=== PATIENT | female | born 1975 | race Caucasian/White ===

== ENCOUNTER 2017-06-15 21:08 | Emergency (ER) | payer SELFPAY ==
[2017-06-16 01:34] VITALS: BP 122/69
--- NOTE | 2017-06-16 02:24 | ED ---
Skin Complaint - HPI Summary HPI Summary: Pt here w/ Rt buttock sore x 2 weeks. Started as a deep pimple - sore to touch and seemed to be getting better but today seemed worse. Had a brief bought if acute nausea and pallor followed by wound coming to a head and rupturing w/ purulent d/c. Denies fever, chills. Area is still sore since rupture but has some relief of pressure. She is here tonight as she had this happen a few year ago and required antibiotics to treat skin infection which lasted weeks. She did not have a cx performed as she did not have health insurance at the time. No known h/o MRSA. Believes she took bactrim with good results. No other issues of concern. - History of Current Complaint Chief Complaint: EDRashSkinAbscess Time Seen by Provider: 06/16/17 01:07 Stated Complaint: POSS INFECTION ON LOWER BACK Hx Obtained From: Patient Pain Intensity: 0 Pain Scale Used: 0-10 Numeric - Allergy/Home Medications Allergies/Adverse Reactions: Allergies Allergy/AdvReac Type Severity Reaction Status Date / Time bleach Allergy Hives Uncoded 06/15/17 21:13 PMH/Surg Hx/FS Hx/Imm Hx Previously Healthy: Yes Endocrine/Hematology History: Denies: Autoimmune Disease - Immunization History Immunizations Up to Date: Yes Infectious Disease History: No Infectious Disease History: Denies: Hx of Known/Suspected MRSA, Traveled Outside the in Last 30 Days - Family History Known Family History: Positive: Unknown - Social History Occupation: Unemployed Lives: With Family - partner Alcohol Use: Occasionally - once a month or so Hx Substance Use: Yes Substance Use Type: Reports: Marijuana - occasionally Hx Tobacco Use: No Smoking Status (MU): Never Smoked Tobacco Review of Systems Constitutional: Negative Negative: Fever, Chills Negative: Chest Pain Negative: Shortness Of Breath Gastrointestinal: Other - see HPI Positive: no symptoms reported Musculoskeletal: Negative Skin: Other - see HPI Neurological: Negative Negative: Weakness, Paresthesia, Numbness Psychological: Normal All Other Systems Reviewed And Are Negative: Yes Physical Exam Triage Information Reviewed: Yes Vital Signs On Initial Exam: Initial Vitals Temp Pulse Resp BP Pulse Ox 98.0 F 103 16 118/76 97 06/15/17 21:16 06/15/17 21:16 06/15/17 21:16 06/15/17 21:16 06/15/17 21:16 Vital Signs Reviewed: Yes Appearance: Positive: Well-Appearing, No Pain Distress, Well-Nourished Skin: Positive: Warm, Dry - scabbed area over Rt buttock w/ focal erythema -no fever to touch - no edema, no induration, no fluctuance, no drainage - mild TTP - tissue soft Head/Face: Positive: Normal Head/Face Inspection Eyes: Positive: EOMI ENT: Positive: Hearing grossly normal Respiratory/Lung Sounds: Positive: Breath Sounds Present Cardiovascular: Positive: Pulses are Symmetrical in both Upper and Lower Extremities Musculoskeletal: Positive: Normal, Strength/ROM Intact Neurological: Positive: Normal, Sensory/Motor Intact, Alert, Oriented to Person Place, Time, CN Intact II-III Psychiatric: Positive: Normal Diagnostics - Vital Signs Vital Signs Temp Pulse Resp BP Pulse Ox 06/16/17 01:33 98.1 F 75 16 122/69 06/15/17 23:20 83 16 125/76 100 06/15/17 21:16 98.0 F 103 16 118/76 97 - Laboratory Lab Statement: Any lab studies that have been ordered have been reviewed, and results considered in the medical decision making process. Course/Dx - Course Course Of Treatment: Wound appears to have drained - no need for further opening tonight. Advised conservative care with option to start anbx if worsens. Pt agrees w/ plan and will return to ED if sx worsen. - Diagnoses Provider Diagnoses: Buttock wound Discharge - Discharge Plan Condition: Stable Disposition: HOME Prescriptions: Sulfamethox/Trimethoprim DS* [Bactrim DS 800/160 TAB*] 1 tab PO BID #20 tab Patient Education Materials: Acute Wound Care (ED), Wound Healing and Your Diet (ED) Referrals: No Primary Care Phys,NOPCP [Primary Care Provider] - Additional Instructions: You have a wound that appears to have ruptured and is healing. You may continue to aid in healing and comfort by using a warm epsom salt compress daily. You may also wash the area with soap and water. Do not apply ointment as this may occlude any infection that wants to drain. You may take ibuprofen with food for pain and swelling. You do not appear to need an antibiotic at this time however should this wound get worse (ie. redness, swelling, purulent drainage, fever, chills) you may start bactrim. If no relief or worse, seek medical attention.
== END 2017-06-16 01:33 | disposition home or self-care (01) ==
LOC: ED 21:08
DX: S30.91XA Unspecified superficial injury of lower back and pelvis, initial encounter (principal); X58.XXXA Exposure to other specified factors, initial encounter; Y93.9 Activity, unspecified; Y92.9 Unspecified place or not applicable; F12.90 Cannabis use, unspecified, uncomplicated
CPT/HCPCS: 99282

== ENCOUNTER 2017-09-26 15:20 | Emergency (ER) | payer SELFPAY ==
--- NOTE | 2017-09-26 16:39 | UC ---
Back Pain HPI - HPI Summary HPI Summary: Lumbar pain for about one month---no specific injury, hurts to roll or arch back , movements hurt---has had episodes of feet feeling numb, pain both side of spine - History of Current Complaint Chief Complaint: UCBackPain Stated Complaint: BACK INJURY Time Seen by Provider: 09/26/17 16:13 Hx Obtained From: Patient Hx Last Menstrual Period: ended 3 days ago ?: No Onset/Duration: Gradual Onset, Lasting Weeks - 4, Still Present Timing: Constant Severity Initially: Moderate Severity Currently: Moderate Back Pain: Is Discrete @ Character: Throbbing, Stiffness Aggravating Factor(s): Movement Alleviating Factor(s): Position Associated Signs And Symptoms: Positive: Tingling - intermittent and fleeting episodes in both feet - Allergies/Home Medications Allergies/Adverse Reactions: Allergies Allergy/AdvReac Type Severity Reaction Status Date / Time bleach Allergy Hives Uncoded 09/26/17 15:32 PMH/Surg Hx/FS Hx/Imm Hx Previously Healthy: Yes - Surgical History Surgical History: None - Family History Known Family History: Positive: Unknown - Social History Occupation: Employed Full-time - Actor Lives: With Family Alcohol Use: Occasionally Substance Use Type: Marijuana Smoking Status (MU): Never Smoked Tobacco Review of Systems Constitutional: Negative Skin: Negative Eyes: Negative ENT: Negative Respiratory: Negative Cardiovascular: Negative Gastrointestinal: Negative Genitourinary: Negative Motor: Negative Neurovascular: Negative Musculoskeletal: Arthralgia Neurological: Negative Psychological: Negative Is Patient Immunocompromised?: No All Other Systems Reviewed And Are Negative: Yes Physical Exam Triage Information Reviewed: Yes Appearance: Well-Appearing, No Pain Distress, Well-Nourished Vital Signs: Initial Vital Signs Temp 98.6 F 09/26/17 15:29 Pulse 112 09/26/17 15:29 Resp 18 09/26/17 15:29 BP 137/93 09/26/17 15:29 Pulse Ox 100 09/26/17 15:29 Vital Signs Reviewed: Yes Eye Exam: Normal Eyes: Positive: Conjunctiva Clear ENT Exam: Normal ENT: Positive: Normal ENT inspection, Hearing grossly normal. Negative: Tonsillar swelling, Tonsillar exudate, Trismus, Muffled voice Dental Exam: Normal Neck exam: Normal Neck: Positive: Supple, Nontender, No Lymphadenopathy Respiratory Exam: Normal Respiratory: Positive: Chest non-tender, No respiratory distress, No accessory muscle use Cardiovascular Exam: Normal Cardiovascular: Positive: RRR, Pulses Normal, Brisk Capillary Refill Musculoskeletal Exam: Normal Neurological Exam: Normal Neurological: Positive: Alert, Muscle Tone Normal Psychological Exam: Normal Skin Exam: Normal Diagnostics - Radiology No standard instances Xray Interpretation: Positive (See Comments) Radiology Interpretation Completed By: Radiologist - scoliosis Back Pain Course/Dx - Course Course Of Treatment: muscle relaxer, Nsaid, Pt referal, follow with pcp - Differential Dx/Diagnosis Provider Diagnoses: Acute muscle spasm lumbar spine Discharge - Discharge Plan Condition: Stable Disposition: HOME Prescriptions: Cyclobenzaprine TAB* [Flexeril 10 MG TAB*] 10 mg PO TID PRN #20 tab PRN Reason: muscle pain Ibuprofen TAB* [Motrin TAB* 600 MG] 600 mg PO Q6H PRN #40 tab PRN Reason: pain Patient Education Materials: Acute Low Back Pain (ED), Lower Back Exercises (ED ) Referrals: [facility]IAN REFERRAL [Outside] - 1 Week No Primary Care Phys,NOPCP [Primary Care Provider] -
[2017-09-26 17:37] VITALS: BP 124/81
--- NOTE | 2017-09-26 17:46 | RAD ---
INDICATION: Low back pain with foot numbness COMPARISON: None. TECHNIQUE: 5 views of the lumbar spine were obtained. FINDINGS: On the AP view there is a slight amount of levoconvex curvature of the lumbar spine. Otherwise the vertebra are in normal alignment. No fracture is seen. Disc spaces appear maintained. . IMPRESSION: Slight levoconvex curvature of the lumbar spine in this otherwise nonacute radiographic series.
== END 2017-09-26 18:16 | disposition home or self-care (01) ==
LOC: UCEAST 15:20
DX: M62.830 Muscle spasm of back (principal); Z72.89 Other problems related to lifestyle; F12.90 Cannabis use, unspecified, uncomplicated
CPT/HCPCS: 72110; 99212; G0463

== ENCOUNTER 2019-06-11 18:42 | Emergency (ER) | payer OTHER ==
[2019-06-11 20:32] LABS: ABS Eosinophils 0.1 10^3/ul (0-0.6); ABS Lymphocytes 0.8 10^3/ul (1.0-4.8); ABS Monocytes 0.9 10^3/ul (0-0.8); ABS Neutrophils 14.5 10^3/ul (1.5-7.7); Eosinophil % 0.8 %; Hematocrit 44 % (35-47); Hemoglobin 15.3 g/dL (12.0-16.0); Mean Corpuscular HGB Conc 35 g/dL (31-36); Mean Corpuscular Hemoglobin 33 pg (27-31); Mean Corpuscular Volume 94 fL (80-97); Mean Platelet Volume 8.6 fL (7.4-10.4); Nucleated Red Blood Cells % 0.1; Platelet Count 239 10^3/uL (150-450); Red Blood Count 4.67 10^6 /uL (3.70-4.87); Red Cell Distribution Width 13 % (10-15); White Blood Count 16.4 10^3/uL (3.5-10.8)
[2019-06-11 20:51] LABS: ALT 7 U/L (7-52); AST 12 U/L (13-39); Albumin 4.5 g/dL (3.2-5.2); Albumin/Globulin Ratio 1.6 (1-3); Alkaline Phosphatase 44 U/L (34-104); Anion Gap 7 mmol/L (2-11); BUN/Creatinine Ratio 11.3 (8-20); Blood Urea Nitrogen 8 mg/dL (6-24); C Reactive Protein 8.65 mg/L (<8.01); CO2 Carbon Dioxide 24 mmol/L (22-32); Calcium 9.5 mg/dL (8.6-10.3); Chloride 105 mmol/L (101-111); EGFR African American 108.2 (>60); EGFR Non-African American 89.4 (>60); Globulin 2.9 g/dL (2-4); Glucose 119 mg/dL (70-100); Potassium 3.7 mmol/L (3.5-5.0); Sodium 136 mmol/L (135-145); Total Protein 7.4 g/dL (6.4-8.9)
[2019-06-11 20:56] LABS: HCG Pregnancy < 0.60 mIU/mL
--- NOTE | 2019-06-11 21:42 | ED ---
Abdominal Pain/Female - HPI Summary HPI Summary: This patient is a 43 year old female presenting to [facility] with a chief complaint of right flank pain and epigastric pain since 2 days ago. She reports nausea, perceived fever, constipation and chills. She describes the epigastric pain as a cramping pain. She states it feels like acid reflux. She states she still has her appendix and gallbladder. She denies vomiting. She rates her pain 10/10 in severity initially. She says the pain has gotten slightly better since arrival. - History of Current Complaint Chief Complaint: EDFlankPain Stated Complaint: BACK PAIN, STOMACH CRAMPING PER PT Time Seen by Provider: 06/11/19 21:35 Hx Obtained From: Patient Hx Last Menstrual Period: ended 3 days ago Pain Intensity: 8 Allergies/Adverse Reactions: Allergies Allergy/AdvReac Type Severity Reaction Status Date / Time bleach Allergy Hives Uncoded 09/26/17 15:32 PMH/Surg Hx/FS Hx/Imm Hx Musculoskeletal History: Denies: Hx Scoliosis Neurological History: Denies: Hx Headaches, Other Neuro Impairments/Disorders Infectious Disease History: No Infectious Disease History: Denies: Hx of Known/Suspected MRSA, Traveled Outside the [place] in Last 30 Days - Family History Known Family History: Positive: Unknown - Social History Alcohol Use: Occasionally Hx Substance Use: Yes Substance Use Type: Reports: Marijuana Hx Tobacco Use: No Smoking Status (MU): Never Smoked Tobacco Review of Systems Positive: Fever, Chills Positive: Abdominal Pain, Nausea. Negative: Vomiting Positive: flank pain All Other Systems Reviewed And Are Negative: Yes Physical Exam - Summary Physical Exam Summary: VITAL SIGNS: Reviewed. GENERAL: Patient is a well-developed and nourished FEMALE who is lying comfortable in the stretcher. Patient is not in any acute respiratory distress. HEAD AND FACE: No signs of trauma. No ecchymosis, hematomas or skull depressions. No sinus tenderness. EYES: PERRLA, EOMI x 2, No injected conjunctiva, no nystagmus. EARS: Hearing grossly intact. Ear canals and tympanic membranes are within normal limits. MOUTH: Oropharynx within normal limits. NECK: Supple, trachea is midline, no adenopathy, no JVD, no carotid bruit, mild right CVA tenderness, neck with full ROM. CHEST: Symmetric, no tenderness at palpation LUNGS: Clear to auscultation bilaterally. No wheezing or crackles. CVS: Regular rate and rhythm, S1 and S2 present, no murmurs or gallops appreciated. ABDOMEN: Soft, non-tender. No signs of distention. No rebound no guarding, and no masses palpated. Bowel sounds are normal. EXTREMITIES: FROM in all major joints, no edema, no cyanosis or clubbing. NEURO: Alert and oriented x 3. No acute neurological deficits. Speech is normal and follows commands. SKIN: Dry and warm Triage Information Reviewed: Yes Vital Signs On Initial Exam: Initial Vitals Temp Pulse Resp BP Pulse Ox 99.9 F 94 18 118/72 97 06/11/19 18:43 06/11/19 18:43 06/11/19 18:43 06/11/19 18:43 06/11/19 18:43 Vital Signs Reviewed: Yes Diagnostics - Vital Signs Vital Signs Temp Pulse Resp BP Pulse Ox 06/11/19 20:55 98.8 F 85 18 123/73 97 06/11/19 18:43 99.9 F 94 18 118/72 97 - Laboratory Lab Results: Lab Results 06/11/19 06/11/19 06/11/19 Range/Units 20:23 20:23 20:23 WBC 16.4 H (3.5-10.8) 10^3/uL RBC 4.67 (3.70-4.87) 10^6 /uL Hgb 15.3 (12.0-16.0) g/dL Hct 44 (35-47) % MCV 94 (80-97) fL MCH 33 H (27-31) pg MCHC 35 (31-36) g/dL RDW 13 (10-15) % Plt Count 239 (150-450) 10^3/uL MPV 8.6 (7.4-10.4) fL Neut % (Auto) 88.4 % Lymph % (Auto) 5.0 % [place] % (Auto) 5.6 % Eos % (Auto) 0.8 % Baso % (Auto) 0.2 % Absolute Neuts (auto) 14.5 H (1.5-7.7) 10^3/ul Absolute Lymphs (auto) 0.8 L (1.0-4.8) 10^3/ul Absolute Monos (auto) 0.9 H (0-0.8) 10^3/ul Absolute Eos (auto) 0.1 (0-0.6) 10^3/ul Absolute Basos (auto) 0.0 (0-0.2) 10^3/ul Absolute Nucleated RBC 0.0 10^3/ul Nucleated RBC % 0.1 Sodium 136 (135-145) mmol/L Potassium 3.7 (3.5-5.0) mmol/L Chloride 105 (101-111) mmol/L Carbon Dioxide 24 (22-32) mmol/L Anion Gap 7 (2-11) mmol/L BUN 8 (6-24) mg/dL Creatinine 0.71 (0.51-0.95) mg/dL Est GFR ( Amer) 108.2 (>60) Est GFR (Non-Af Amer) 89.4 (>60) BUN/Creatinine Ratio 11.3 (8-20) Glucose 119 H (70-100) mg/dL Lactic Acid 0.7 (0.5-2.0) mmol/L Calcium 9.5 (8.6-10.3) mg/dL Total Bilirubin 0.80 (0.2-1.0) mg/dL AST 12 L (13-39) U/L ALT 7 (7-52) U/L Alkaline Phosphatase 44 (34-104) U/L C-Reactive Protein 8.65 H (<8.01) mg/L Total Protein 7.4 (6.4-8.9) g/dL Albumin 4.5 (3.2-5.2) g/dL Globulin 2.9 (2-4) g/dL Albumin/Globulin Ratio 1.6 (1-3) Beta HCG, Quant < 0.60 mIU/mL Result Diagrams: 06/11/19 20:23 06/11/19 20:23 Lab Statement: Any lab studies that have been ordered have been reviewed, and results considered in the medical decision making process. - CT Abd/Pel CT Interpretation Completed By: Radiologist Summary of CT Findings: 1. No acute findings. No evidence of acute appendicitis. No nephrolithaisias or hydronephrosis. No hydroureter. No adnexal masses observed. However if the patient's pain is more in the pelvis, consider pelvic US. 2. The bladder is partially filled wit hurine. There is some thickening of the bladder wall. This could represent cystitis. ED Provider has reviewed this report. Abdominal Pain Fem Course/Dx - Course Course Of Treatment: This patient is a 43 year old female presenting to [facility] with a chief complaint of right flank pain and epigastric pain since [address] Abd/Pel and urinalysis were unremarkable for GIGU problems. A plan for discharge was discussed with the patient and she was agreeable with this plan. - Diagnoses Provider Diagnoses: Back pain Discharge - Sign-Out/Discharge Documenting (check all that apply): Patient Departure - Discharge Patient Received Moderate/Deep Sedation with Procedure: No - Discharge Plan Condition: Stable Disposition: HOME Patient Education Materials: Back Pain (ED) Referrals: Chang Costello MD [Primary Care Provider] - Additional Instructions: Return to ED with new or worsening symptoms. - Attestation Statements Document Initiated by Scribe: Yes Documenting Scribe: Alejandro Murry Provider For Whom Haleyibe is Documenting (Include Credential): Azucena Lemon MD Scribe Attestation: Alejandro Bella scribed for Azucena Lemon MD on 06/11/19 at [id number]. Status of Scribe Document: Ready
[2019-06-11 21:51] LABS: Urine Appearance Clear; Urine Bilirubin Negative (Negative); Urine Blood Negative (Negative); Urine Color Straw; Urine Glucose Negative (Negative); Urine Ketones Negative (Negative); Urine Nitrite Negative (Negative); Urine Protein Negative (Negative); Urine Specific Gravity 1.002 (1.010-1.030); Urine Urobilinogen Negative (Negative)
[2019-06-11] MEDS ORDERED: Pantoprazole TAB * 40 MG TAB PO ONE (22:12)
[2019-06-11] MEDS ORDERED: traMADol TAB* 50 MG PO ONE (22:12)
[2019-06-11 22:45] VITALS: BP 122/69
== END 2019-06-11 22:44 | disposition home or self-care (01) ==
LOC: ED 18:42
DX: M54.5 Low back pain (principal); R10.13 Epigastric pain; R11.0 Nausea
CPT/HCPCS: 36415; 74176; 80053; 81003; 83605; 84702; 85025; 86140; 99282; A9270-GY

== ENCOUNTER 2021-02-13 11:03 | Inpatient (IN) ==
[2021-02-13] MEDS ORDERED: NS 0.9% 1000 ml BAG 1,000 ML IV ONE ×2 (11:08→15:26)
[2021-02-13] MEDS ORDERED: Ondansetron 4 mg VIAL 2 MG/ML 2 ml VIAL IV ONE ×3 (11:44→15:26)
[2021-02-13] MEDS ORDERED: Morphine 4 MG/ML VIAL (1 ml) IV ONE ×3 (11:44→15:26)
[2021-02-13 11:47] LABS: Hematocrit 39 % (35-47); Mean Corpuscular HGB Conc 33 g/dL (31-36); Mean Corpuscular Hemoglobin 32 pg (27-31); Mean Corpuscular Volume 95 fL (80-97); Platelet Count 147 10^3/uL (150-450); Red Blood Count 4.14 10^6 /uL (3.70-4.87); Red Cell Distribution Width 13 % (10-15); White Blood Count 7.5 10^3/uL (3.5-10.8)
[2021-02-13 11:58] LABS: Activated Partial Thrombo Time 23.1 seconds (26.0-38.0); INR 1.09 (0.82-1.09)
[2021-02-13 12:11] LABS: Albumin 4.2 g/dL (3.2-5.2); Albumin/Globulin Ratio 1.7 (1-3); BUN/Creatinine Ratio 18.6 (8-20); C Reactive Protein 6.61 mg/L (<8.01); Calcium 9.8 mg/dL (8.6-10.3); EGFR Non-African American 90.1 (>60); Globulin 2.5 g/dL (2-4); Potassium 3.9 mmol/L (3.5-5.0); Total Bilirubin 0.6 mg/dL (0.2-1.0); Total Protein 6.7 g/dL (6.4-8.9)
[2021-02-13] MEDS ORDERED: Iohexol 300 (CONTRAST) 10 ML SDV IV ONE (12:22)
[2021-02-13 12:28] LABS: ABS Eosinophils 0.1 10^3/ul (0-0.6); ABS Lymphocytes 1.5 10^3/ul (1.0-4.8); ABS Monocytes 1.1 10^3/ul (0-0.8); ABS Neutrophils 4.6 10^3/ul (1.5-7.7); Eosinophil % 1.9 %; Lymphocyte % 20.6 %
[2021-02-13 12:41] LABS: HCG Pregnancy 0.84 mIU/mL
[2021-02-13] MEDS ORDERED: Al Hydrox/Mg Hydrox/Simet LIQ 30 ML UDC PO PRN (17:28)
[2021-02-13 18:12] LABS: Urine Appearance Clear; Urine Bilirubin Negative (Negative); Urine Blood Negative (Negative); Urine Color Yellow; Urine Glucose Negative (Negative); Urine Ketones 2+ (Negative); Urine Nitrite Negative (Negative); Urine Protein Negative (Negative); Urine Urobilinogen Negative (Negative)
[2021-02-13 19:46] LABS: Urine Specific Gravity > 1.060 (1.002-1.030)
[2021-02-13] MEDS ORDERED: Lorazepam PYXIS KEY PRN (20:02)
[2021-02-13] MEDS: Pantoprazole VIAL 40 MG VIAL IV SCH (20:03)
[2021-02-13] MEDS: Morphine 2 MG/ML SYRINGE IV PRN (20:03)
[2021-02-13] MEDS: Ondansetron 4 mg VIAL 2 MG/ML 2 ml VIAL IV PRN (20:35)
[2021-02-13] MEDS: NS 0.9% 1000 ml BAG 1,000 ML IV SCH (20:37)
[2021-02-13] MEDS: Enoxaparin 40 MG/0.4 ML SYR SUBCUT SCH (20:37)
[2021-02-13] MEDS: LORazepam 2 mg VIAL 1 ml IV PUSH PRN (22:54)
[2021-02-14] MEDS: Ondansetron 4 mg VIAL 2 MG/ML 2 ml VIAL IV PRN ×4 (00:41→19:30)
[2021-02-14] MEDS: Morphine 2 MG/ML SYRINGE IV PRN ×3 (00:41→19:31)
[2021-02-14] MEDS: NS 0.9% 1000 ml BAG 1,000 ML IV SCH ×3 (04:00→22:51)
[2021-02-14 05:14] LABS: Hematocrit 33 % (35-47); Mean Corpuscular HGB Conc 34 g/dL (31-36); Mean Corpuscular Hemoglobin 32 pg (27-31); Mean Corpuscular Volume 95 fL (80-97); Mean Platelet Volume 11.3 fL (7.4-10.4); Platelet Count 124 10^3/uL (150-450); Red Blood Count 3.43 10^6 /uL (3.70-4.87); Red Cell Distribution Width 12 % (10-15); White Blood Count 9.3 10^3/uL (3.5-10.8)
[2021-02-14 05:35] LABS: Albumin 3.4 g/dL (3.2-5.2); Albumin/Globulin Ratio 1.7 (1-3); BUN/Creatinine Ratio 12.9 (8-20); EGFR African American 125.4 (>60); EGFR Non-African American 103.6 (>60); Potassium 3.4 mmol/L (3.5-5.0); Total Bilirubin 0.3 mg/dL (0.2-1.0); Total Protein 5.4 g/dL (6.4-8.9)
[2021-02-14] MEDS: Pantoprazole VIAL 40 MG VIAL IV SCH (08:46)
[2021-02-14] MEDS: LORazepam 2 mg VIAL 1 ml IV PUSH PRN ×3 (08:46→22:46)
[2021-02-14] MEDS ORDERED: Ondansetron ODT 4 mg TAB 4 MG TAB SL PRN (10:29)
[2021-02-14] MEDS: Enoxaparin 40 MG/0.4 ML SYR SUBCUT SCH (17:43)
[2021-02-14] MEDS: Nystatin SUSPENSION 100,000 UNITS/ML UDC PO SCH (22:45)
[2021-02-15 04:42] LABS: Hematocrit 31 % (35-47); Hemoglobin 10.6 g/dL (12.0-16.0); Mean Corpuscular HGB Conc 34 g/dL (31-36); Mean Corpuscular Hemoglobin 32 pg (27-31); Mean Corpuscular Volume 94 fL (80-97); Mean Platelet Volume 10.3 fL (7.4-10.4); Platelet Count 135 10^3/uL (150-450); Red Blood Count 3.32 10^6 /uL (3.70-4.87); Red Cell Distribution Width 13 % (10-15); White Blood Count 16.2 10^3/uL (3.5-10.8)
[2021-02-15] MEDS: NS 0.9% 1000 ml BAG 1,000 ML IV SCH (05:29)
[2021-02-15 05:35] LABS: ABS Basophils 0.1 10^3/ul (0-0.2); ABS Eosinophils 0.2 10^3/ul (0-0.6); ABS Lymphocytes 2.9 10^3/ul (1.0-4.8); ABS Monocytes 1.4 10^3/ul (0-0.8); ABS Neutrophils 11.6 10^3/ul (1.5-7.7); Eosinophil % 1.5 %; Lymphocyte % 17.8 %
[2021-02-15 06:03] LABS: Albumin 3.2 g/dL (3.2-5.2); Calcium 7.9 mg/dL (8.6-10.3); Magnesium 1.4 mg/dL (1.9-2.7); Potassium 3.2 mmol/L (3.5-5.0); Total Bilirubin 0.2 mg/dL (0.2-1.0)
[2021-02-15 06:09] LABS: Albumin/Globulin Ratio 1.7 (1-3); BUN/Creatinine Ratio 6.6 (8-20); EGFR African American 127.8 (>60); EGFR Non-African American 105.6 (>60); Globulin 1.9 g/dL (2-4); Total Protein 5.1 g/dL (6.4-8.9)
[2021-02-15] MEDS: Morphine 2 MG/ML SYRINGE IV PRN ×2 (08:21→13:20)
[2021-02-15] MEDS: LORazepam 2 mg VIAL 1 ml IV PUSH PRN ×2 (08:26→13:19)
[2021-02-15] MEDS: Pantoprazole VIAL 40 MG VIAL IV SCH (08:27)
[2021-02-15] MEDS: Nystatin SUSPENSION 100,000 UNITS/ML UDC PO SCH (08:27)
[2021-02-15] MEDS ORDERED: Magnesium Sulfate IV 3 GM in NS 0.9% 100 ml BAG 100 ML IVPB ONE (10:00)
[2021-02-15] MEDS ORDERED: KCL 20 MEQ/100 ML IVPREMIX 20 MEQ/100 ML BAG IV SCH (10:00)
[2021-02-15 12:28] VITALS: BP 128/66
== END 2021-02-15 16:38 | disposition home or self-care (01) | DRG 249 ==
LOC: ED 11:03 → MEDTELE 17:28
PROVIDERS: ADMIT Internal Medicine Hematology & Oncology; ATTEND Internal Medicine Hematology & Oncology